=== PATIENT | female | born 1975 | race Caucasian/White ===

== ENCOUNTER 2022-02-17 13:47 | Emergency (ER) | payer OTHER ==
[~2022-02-17] VITALS: Ht 157.5 cm; Wt 101.2 kg
[2022-02-17] MEDS ORDERED: LABETALOL HCL100 MG PO (14:20)
[2022-02-17] MEDS ORDERED: PROBIOTIC1 EAC4 PO (14:20)
[2022-02-17] MEDS ORDERED: KETO10TA2 PO (19:36)
[2022-02-17] MEDS ORDERED: CYCLOBENZAPRINE10 MG PO (19:36)
== END 2022-02-17 20:24 | disposition home or self-care (01) ==
LOC: ER 13:47
DX: M54.41 Lumbago with sciatica, right side (principal); M41.9 Scoliosis, unspecified; Z88.6 Allergy status to analgesic agent; Z91.018 Allergy to other foods